=== PATIENT | male | born 1985 | race Two or more races ===

== ENCOUNTER 2024-02-07 06:35 | Outpatient (OUT) | payer MEDICARE, MEDICAID, SELFPAY ==
[2024-02-07 07:11] LABS: Basophils Percent Auto 0.7 % (0.2-2.0); Eosinophils Absolute Auto 0.2 10^3/uL (0.0-0.7); Eosinophils Percent Auto 3.1 % (0.9-7.0); Hematocrit 46.8 % (42.0-54.0); Hemoglobin 15.5 g/dL (14.0-18.0); Immature Granulocytes Abs Auto 0.02 10^3/uL (0.00-0.03); Immature Granulocytes Pct Auto 0.3 % (0.0-0.5); Mean Corpuscular HGB Conc 33.1 g/dL (29.9-35.2); Mean Corpuscular Hemoglobin 33.1 pg (25.9-34.0); Mean Platelet Volume 11.5 fL (9.5-13.5); Monocytes Absolute Auto 0.7 10^3/uL (0.3-0.8); Monocytes Percent Auto 11.4 % (1.7-12.0); Neutrophils Absolute Auto 3.2 10^3/uL (1.4-6.5); Neutrophils Percent Auto 51.5 % (43.0-75.0); Platelet Count 157 10^3/uL (150-450); Red Blood Count 4.68 10^6/uL (4.70-6.10); Red Cell Distribution Width 13.1 % (11.0-15.0); White Blood Count 6.1 10^3/uL (4.0-11.0)
[2024-02-07 07:45] LABS: Alanine Aminotransferase 18 U/L (16-63); Albumin Globulin Ratio 1.1; Alkaline Phosphatase 85 U/L (46-116); Anion Gap 16.9; Aspartate Amino Transferase 18 U/L (15-37); Bilirubin Total 0.3 mg/dL (0.2-1.0); Calcium 8.6 mg/dL (8.5-10.1); Carbon Dioxide 16.8 mmol/L (21.0-32.0); Chloride 107 mmol/L (98-107); Estimated GFR (African America >60 (>=60); Estimated GFR (Non-African Ame >60 (>=60); Globulin 3.5 g/dL; Glucose 107 mg/dL (74-106); Potassium 4.7 mmol/L (3.5-5.1); Sodium 136 mmol/L (136-145); Total Protein 7.5 g/dL (6.4-8.2)
== END 2024-02-07 06:36 | disposition home or self-care (01) ==
LOC: LAB 06:35
PROVIDERS: PCP Family Medicine; Visit Provider Family Medicine
DX: Z79.899 Other long term (current) drug therapy (principal); R56.9 Unspecified convulsions
CPT/HCPCS: 36415; 80053; 85025

== ENCOUNTER 2024-10-18 07:03 | Emergency (ER) | payer MEDICARE, MEDICAID, SELFPAY ==
[2024-10-18 07:10] VITALS: BP 129/88; PULSE 56; TEMP 36.7; O2SAT 100; BMI 29.5
--- NOTE | 2024-10-18 07:33 | ED_ITS ---
HPI - Wound/Laceration General Chief Complaint: Wound/Laceration Stated Complaint: LACERATION L EYE Time Seen by Provider: 10/18/24 07:17 Source: caregiver Source comment: Patient from [facility]. 2 staff members here for assistance Mode of arrival: walk-in Limitations: language barrier and altered mental status History of Present Illness HPI narrative: 39-year-old male who is coming from a residential, he is nonverbal and apparently had a angry affect which she usually have during which she hit his head with the closet corner, the patient did not pass out and this is apparently at his usual behavior There is no other complaint and the patient did not show any distress, the patient is up-to-date with his tetanus booster Related Data Allergies Allergy/AdvReac Type Severity Reaction Status Date / Time No Known Drug Allergies Allergy Verified 10/18/24 07:10 Review of Systems ROS Status of ROS 10 or more systems reviewed and unremark able except as noted in history and below Exam Narrative Exam Narrative: Nurses notes and vital signs reviewed and patient is not hypoxic. General: Well-appearing and in no apparent distress. Skin: Warm, dry, no pallor noted. No rash. Head: Normocephalic, laceration just at the left eyebrow that is a 1 cm linear covering only the superficial skin with controlled bleeding, it is irregular in shape Neck: Supple, non-tender. Eye: Pupils are equal, round and EOMI. No scleral icterus. Ears, Nose, Mouth, and Throat: TM are clear, no nasal mucosal hypertrophy. Oral mucosa is moist, no posterior oropharynx erythema, uvula is mid-line Neurological: Nonverbal no cranial nerve dysfunction observed. No truncal ataxia. Moves all extremities. Sensation intact. Constitutional Vital Signs, click to edit/add: Last Vital Signs Temp 98.0 F 10/18/24 07:10 Pulse 56 L 10/18/24 07:10 Resp 18 10/18/24 07:10 BP 129/88 10/18/24 07:10 Pulse Ox 100 10/18/24 07:10 O2 Del Method Room Air 10/18/24 07:10 Course Vital Signs Vital signs: Vital Signs Temperature 98.0 F 10/18/24 07:10 Pulse Rate 56 L 10/18/24 07:10 Respiratory Rate 18 10/18/24 07:10 Blood Pressure 129/88 10/18/24 07:10 Pulse Oximetry 100 10/18/24 07:10 Oxygen Delivery Method Room Air 10/18/24 07:10 Temperature 98.0 F 10/18/24 07:10 Pulse Rate 56 L 10/18/24 07:10 Respiratory Rate 18 10/18/24 07:10 Blood Pressure 129/88 10/18/24 07:10 Pulse Oximetry 100 10/18/24 07:10 Oxygen Delivery Method Room Air 10/18/24 07:10 MDM - Wound/Laceration MDM Narrative Medical decision making narrative: The patient is up-to-date with his tetanus I was able to apply Dermabond although the patient was not cooperative with examination as per the staff at the bedside this is his usual behavior To avoid any further harm Dermabond will be the best way of closing the wound especially that it is superficial and it is controlled bleeding, also applied Steri-Strips on top Wound care instruction provided The patient is to follow up with primary care physician in next 2-3 days or to return to the emergency department should any of the signs or symptoms worsen or new symptoms develop. The patient agrees with the following Diagnosis and Treatment plan and the patient will be discharged home. Discharge Plan Discharge Chief Complaint: Wound/Laceration Clinical Impression: Laceration Patient Disposition: Home, Self-Care Time of Disposition Decision: 07:30 Condition: Good Print Language: Barbadian Instructions: Laceration (DC), Facial Laceration (ED) Referrals: MEL BURTON DO [Primary Care Provider] - 1 week
== END 2024-10-18 07:38 | disposition home or self-care (01) ==
PROVIDERS: Emergency Provider Emergency Medicine; PCP Family Medicine
DX: S01.112A Laceration without foreign body of left eyelid and periocular area, initial encounter (principal); W22.03XA Walked into furniture, initial encounter
CPT/HCPCS: 99282

== ENCOUNTER 2024-11-29 06:33 | Outpatient (OUT) | payer MEDICARE, MEDICAID, SELFPAY ==
--- OUTSIDE RECORDS SUMMARY | 2024-11-29 06:34 | XMS_ITS | CCD ---
Author Organization [facility] Care Team Providers Care [employer] Name Role Phone MICHEAL, DR MEL Aguilar Primary Care Unavailable PAY, DR ROBERTS Attending Unavailable PAY, DR ROBERTS Admitting Unavailable WEST, DR KATHYA Gross Consulting Unavailable PAY, DR ROBERTS Consulting Unavailable GRECHNY, KYLAH MACHADO Consulting Unavailable BURTON, DR MEL Aguilar Consulting Unavailable BURTON, DR MEL Aguilar Primary Care Unavailable BURTON, DR MEL Aguilar Admitting Unavailable BURTON, DR MEL Aguilar Attending Unavailable Unavailable Primary Care Provider Unavailabl e Unavailable Primary Care Provider Unavailabl e MEL BURTON Primary Care Physician [phone] MEL BURTON Admitting Unavailable BURTON, MEL Attending Unavailable BURTON, MEL Attending Unavailable BURTON, MEL Admitting Unavailable BURTON, MEL Attending Unavailable BURTON, MEL Admitting Unavailable BURTON, MEL Attending Unavailable BURTON, MEL Admitting Unavailable Medications Current Medications Medication Drug Class(es) Dates Sig (Normalized) Sig (Original) acetaZOLAMIDE 250 mg oral tablet (3 sources) Carbonic Anhydrase Inhibitor Start: 09-16-2020 take 1 tablet by mouth three times daily acetaZOLAMIDE (DIAMOX) 250 MG tablet TAKE ONE TABLET BY MOUTH 3 TIMES DAILY DIAMOX 09/16/2020 Active Amphetamine / Dextroamphetamine (3 sources) Central Nervous System Stimulant take 30 mg by mouth once daily Amphetamine-Dextro amphetamine (AMPHETAMINE SALT COMBO ORAL) Take 30 mg by mouth daily. Active take 30 mg by mouth once daily A mphetamine-Dextroamphetamine (AMPHETAMINE SALT COMBO ORAL) Take 30 mg by mouth daily. 0 Active ARIPiprazole 30 mg oral tablet (3 sources) Atypical Antipsychotic take 1 tablet by mouth once daily aripiprazole (ABILIFY) 30 MG tablet Take 30 mg by mouth daily. Active bacitracin 0.5 unt/mg topical ointment (3 sources) bacitracin 500 U NIT/GM ointment Apply topically 2 times daily. Apply {RX TOP AMOUNT:249490} to affected area. Active bacitracin 500 U NIT/GM ointment Apply topically 2 times daily. Apply {RX TOP AMOUNT:165521} to affected area. 0 Active benztropine mesylate 1 mg oral tablet (3 sources) Anticholinergic, Antihistamine take 1 tablet by mouth twice daily benztropine (COGENTIN) 1 MG tablet Take 1 mg by mouth 2 times daily. Active busPIRone hydrochloride 15 mg oral tablet (6 sources) Start: 09-17-19 take 2 tablets by mouth three times daily busPIRone (BUSPAR) 15 MG tablet TAKE TWO TABLETS BY MOUTH 3 TIMES DAILY BUSPAR 09/16/2020 Active take 1 tablet by mouth three elis es daily busPIRone (BUSPAR) 10 MG tablet Take 10 mg by mouth 3 times daily. Active 12 hr carBAMazepine 400 mg extended release oral tablet (6 sources) Mood Stabilizer Start: 09-16-2020 take 1 tablet by mouth twice daily carbamazepine (TEGRETOL XR) 400 MG XR tablet TAKE ONE TABLET BY MOUTH TWICE A DAY TEGRETOL XR 09/16/2020 Active take 2 tablets by mouth twice da guillermo carbamazepine (TEGRETOL) 200 MG tablet Take 400 mg by mouth 2 times daily. Active cloNIDine hydrochloride 0.2 mg oral tablet (3 sources) Central alpha-2 Adrenergic Agonist take 1 tablet by mouth three times daily clonidine (CATAPRES) 0.2 MG tablet Take 0.2 mg by mouth 3 times daily. Active docusate sodium 100 mg oral capsule (3 sources) take 1 capsule by mouth twice daily docusate sodium (COLACE) 100 MG capsule Take 100 mg by mouth 2 times daily. Active fluticasone (6 sources) Corticosteroid fluticasone (FLONASE) 50 mcg/act nasal inhaler fluticasone propionate 50 mcg/actuation nasal spray,suspension Active FLUTICASONE PROP IONATE HFA INHALATION Sutton 50 mcg into the nose. Active FLUTICASONE PROP IONATE HFA INHALATION Sutton 50 mcg into the nose. 0 Active guanFACINE 1 mg oral tablet (6 sources) Central alpha-2 Adrenergic Agonist Start: 09-16-2020 take 2 tablets by mouth once daily guanfacine (TENEX) 1 MG tablet TAKE TWO TABLETS BY MOUTH ONCE DAILY TENEX 09/16/2020 Active Start: 09-16-2020 take 1 tablet by ramírez th twice daily guanFACINE HCl 2 MG TABS TAKE ONE TABLET BY MOUTH TWICE A DAY TENEX 09/16/2020 Active haloperidol 5 mg oral tablet (3 sources) Typical Antipsychotic take 1 tablet by mouth three times daily haloperidol (HALDOL) 5 MG tablet Take 5 mg by mouth 3 times daily. Active ketoconazole 20 mg/ml medicated shampoo (3 sources) Azole Antifungal ketoconazole (NIZORAL) 2 % shampoo ketoconazole 2 % shampoo Active ammonium lactate 120 mg/ml topical cream (3 sources) ammonium lactate (AMLACTIN, LAC-HYDRIN) 12 % cream Apply topically 2 times daily. Apply {RX TOP AMOUNT:250414} to affected area. Active linaclotide 0.145 mg oral capsule (3 sources) Guanylate Cyclase-C Agonist Start: 09-10-19 21 take 1 capsule by mouth once daily Linzess 145 MCG CAPS capsule Take 145 mcg by mouth daily. 09/10/2020 Active lurasidone hydrochloride 40 mg oral tablet (6 sources) Atypical Antipsychotic Start: 09-17-19 21 take 1 tablet by mouth at bedtime Latuda 40 MG tablet TAKE ONE TABLET BY MOUTH AT BEDTIME ALONG WITH 80MG 09/16/2020 Active Start: 09-16-2020 take 1 tablet by ramírez th twice daily Latuda 80 MG tablet Take 80 mg by mouth 2 times daily. 09/16/2020 Active metoprolol tartrate 100 mg oral tablet (3 sources) beta-Adrenergic Zo Start: 09-16-2020 take 1 tablet by mouth three times daily metoprolol (LOPRESSOR) 100 MG tablet TAKE ONE TABLET BY MOUTH 3 TIMES DAILY LOPRESSOR 09/16/2020 Active naltrexone hydrochloride 50 mg oral tablet (3 sources) Opioid Antagonist Start: 09-16-2020 take 1 tablet by mouth three times daily naltrexone 50 MG tablet TAKE ONE TABLET BY MOUTH 3 TIMES DAILY 09/16/2020 Active omeprazole 20 mg delayed release oral capsule (3 sources) Proton Pump Inhibitor Start: 09-16-2020 take 1 capsule by mouth once daily omeprazole (PRILOSEC) 20 MG capsule Take 20 mg by mouth daily. 09/16/2020 Active QUEtiapine 400 mg oral tablet (6 sources) Atypical Antipsychotic Start: 09-16-2020 take 1 tablet by mouth twice daily QUEtiapine (SEROQUEL) 400 MG tablet TAKE ONE TABLET BY MOUTH TWICE A DAY SEROQUEL 09/16/2020 Active take 1 tablet by mouth at bedtim e quetiapine (SEROQUEL) 300 MG tablet Take 300 mg by mouth at bedtime. Active raNITIdine 150 mg oral tablet (3 sources) Histamine-2 Receptor Antagonist take 1 tablet by mouth twice daily ranitidine (ZANTAC) 150 MG tablet Take 150 mg by mouth 2 times daily. Active sertraline 100 mg oral tablet (6 sources) Serotonin Reuptake Inhibitor sertraline (ZOLOFT) 100 MG tablet sertraline 100 mg tablet Active sertraline (ZOLO FT) 50 MG tablet sertraline 50 mg tablet Active topiramate 100 mg oral tablet (3 sources) take 1 tablet by mouth twice daily topiramate (TOPAMAX) 100 MG tablet Take 100 mg by mouth 2 times daily. Active triamcinolone acetonide 1 mg/ml topical cream (3 sources) Corticosteroid triamcinolone 0. 1 % cream triamcinolone acetonide 0.1 % topical cream Active Problems Active Problems Problem Classification Problem Date Documented Date Episodic/Chronic Allergic reactions (3 sources) Eczema 09-29-2013 Episodic Anxiety disorders (1 source) Obsessive-compulsive disorder, unspecified; Translations: [OBSESSIVE-COMPULSIV E D/O UNSPEC] Onset: 03-04-2021 Chronic Asthma (4 sources) Unspecified asthma, uncomplicated; Translations: [Asthma] Onset: 03-04-2021 09-29-2013 Chronic Attention-deficit, conduct, and disruptive behavior disorders (3 sources) Attention deficit hyperactivity disorder; Translations: [Attention-deficit hyperactivity disorder, unspecified type] Onset: 12-18-2013 09-20-2020 Chronic Attention-deficit, conduct, and disruptive behavior disorders (3 sources) Hyperactive behavior 09-29-2013 Episodic Developmental disorders (4 sources) Unspecified intellectual disabilities; Translations: [Mental retardation] Onset: 03-04-2021 09-29-2013 Chronic Disorders usually diagnosed in infancy, childhood, or adolescence (10 sources) Autistic disorder; Translations: [Autistic disorder] Onset: 12-18-2013 09-20-2020 Chronic Epilepsy; convulsions (1 source) Epilepsy, unspecified, not intractable, without status epilepticus; Translations: [EPILEPSY UNS NOT INTRACT W/O SE] Onset: 03-04-2021 Chronic Genitourinary symptoms and ill-defined conditions (5 sources) Hematuria, unspecified; Translations: [Unspecified abnormal findings in urine] Onset: 02-04-2021 Episodic Malaise and fatigue (1 source) Other fatigue; Translations: [OTHER FATIGUE] Onset: 02-12-2021 Episodic Mood disorders (6 sources) Depressive disorder; Translations: [Depression] Onset: 12-18-2013 09-29-2013 Chronic Other aftercare (1 source) Other terminal superintendent (current) drug therapy; Translations: [OTH SKILLED NURSING CURRENT DRUG THERAPY] Onset: 03-04-2021 Episodic Other inflammatory condition of skin (3 sources) Seborrhea 09-29-2013 Episodic Other lower respiratory disease (3 sources) Cough; Translations: [COUGH] Onset: 02-28-2021 Episodic Other upper respiratory infections (1 source) Acute upper respiratory infection, unspecified; Translations: [ACUTE UP RESPIRATORY INFECTION UNS] Onset: 03-04-2021 Episodic Unclassified (3 sources) Finding relating to non-verbal communication 08-15-2010 Viral infection (1 source) COVID-19; Translations: [COVID-19] Onset: 03-04-2021 Past or Other Problems Problem Classification Problem Date Documented Da te Episodic/Chronic Disorders of teeth and jaw (12 sources) Dental caries; Translations: [Dental caries, unspecified] Onset: 12-18-2013 05-03-2019 Episodic Epilepsy; convulsions (6 sources) Seizure; Translations: [Unspecified convulsions] Onset: 12-18-2013 09-29-2013 Episodic Other gastrointestinal disorders (3 sources) Chronic constipation; Translations: [Other constipation] Onset: 07-05-2019 09-20-2020 Episodic Other nutritional; endocrine; and metabolic disorders (3 sources) Developmental delay; Translations: [Unspecified lack of expected normal physiological development in childhood] Onset: 12-18-2013 Episodic Results Test Name Value Interpretation Reference Range Facility Telephone Encounteron 2024 [employer] Authentication Interface Message Text Debora aceves calling to get update on email sent to [place] on 09/11/24. Email states: Iris with [facility] is calling [phone] Iris also indicates she has approx. 8 more patients to check on. Please give a call back. Thanks.] Iris states she needs a return call at earliest convenience. Iris states they are required by the state to get an update on waitlist for this Pt and 8 others. Iris can be reached at Phone numbers Email sent 09/15/24 Normal [facility] CBC w/Indiceson 12-08-2023 Erythrocyte distribution width (RBC) [Ratio] 13.9 % Normal 10.9-14.2 [facility] Comment on above: Performed By: #### 2 [id number] #### [facility] [address] [place] [address] Hematocrit (Bld) [Volume fraction] 42.3 % Low 44.0-70.0 [facility] Comment on above: Performed By: #### 2 [id number] #### [facility] [address] [place] [address] Hemoglobin (Bld) [Mass/Vol] 14.0 g/dL Invalid Interpretation Code [facility] Comment on above: Performed By: #### 2 [id number] #### [facility] [address] [place] [address] MCH (RBC) [Entitic mass] 33.4 pg Invalid Interpretation Code [facility] Comment on above: Performed By: #### 2 [id number] #### [facility] [address] [place] [address] MCHC (RBC) [Mass/Vol] 33.2 g/dL Normal 31.4-36.0 [facility] Comment on above: Performed By: #### 2 [id number] #### [facility] [address] [place] [address] MCV (RBC) [Entitic vol] 100.6 fL High 80.0-100.0 [facility] Comment on above: Performed By: #### 2 [id number] #### [facility] [address] [place] [address] Platelet mean volume (Bld) [Entitic vol] 9.6 fL Normal 6.4-10.8 [facility] Comment on above: Performed By: #### 2 [id number] #### [facility] [address] [place] [address] Platelets (Bld) [#/Vol] 184.0 E9/L Normal 150.0-500.0 [facility] Comment on above: Performed By: #### 2 [id number] #### [facility] [address] [place] [address] RBC (Bld) [#/Vol] 4.2 E12/L Normal 3.8-6.7 [facility] Comment on above: Performed By: #### 2 [id number] #### [facility] [address] [place] [address] RBC size Nom (Bld) NORMAL Invalid Interpretation Code [facility] Comment on above: Performed By: #### 2 [id number] #### [facility] [address] [place] [address] WBC corrected for nucl RBC Auto (Bld) [#/Vol] 5.8 E9/L Normal 4.0-11.0 [facility] Comment on above: Performed By: #### 2 [id number] #### [facility] [address] [place] [address] CHEMISTRYOrdered By: SYSTEM SYSTEM on 12-08-2023 Albumin [Mass/Vol] 4.4 g/dL Normal 3.3 - 5.0 gm/dL [facility] Albumin/Globulin [Mass ratio] 1.7 {ratio} Normal 1.1 - 2.2 [facility] ALP [Catalytic activity/Vol] 58 [iU]/d Normal 21 - 98 Int._Unit/L [facility] ALT No additional P-5'-P [Catalytic activity/Vol] 10 [iU]/d Normal 6 - 46 Int._Unit/L [facility] Anion gap [Moles/Vol] 12 mmol/L Normal 6 - 16 mEq/L R emisol Chem AST [Catalytic activity/Vol] 17 [iU]/d Normal 5 - 43 Int._Unit/L [facility] Bilirubin [Mass/Vol] 0.4 mg/dL Normal 0.0 - 1 .1 mg/dL [facility] Calcium [Mass/Vol] 8.6 mg/dL Low 8.9 - 11. 1 mg/dL [facility] Chloride [Moles/Vol] 107 mmol/L Normal 101 - 1 11 mmol/L [facility] CO2 [Moles/Vol] 16 mmol/L Low 21 - 31 mmol/L [facility] Creatinine [Mass/Vol] 0.9 mg/dL Normal 0.5 - 1.3 mg/dL [facility] Globulin (S) [Mass/Vol] 2.6 g/dL Normal 1.4 - 4.0 gm/dL [facility] Glucose [Mass/Vol] 98 mg/dL Normal 55 - 199 mg/dL [facility] Potassium [Moles/Vol] 3.9 mmol/L Normal 3.5 - 5.3 mmol/L [facility] Protein [Mass/Vol] 7.0 g/dL Normal 6.0 - 7.8 gm/dL [facility] Sodium [Moles/Vol] 131 mmol/L Low 135 - 145 mmol/L [facility] Urea nitrogen [Mass/Vol] 10 mg/dL Normal 5 - 21 mg/dL [facility] Urea nitrogen/Creatinine [Mass ratio] 11 mg/mg Normal 10 - 20 [facility] CHEMISTRYOrdered By: Day vázquez on 12-08-2023 eGFR NOT CALCULATED Invalid Interpretation Code >=59 [facility] CMPon 12-08-2023 Albumin [Mass/Vol] 4.4 g/dL Normal 3.3-5.0 [facility] Comment on above: Performed By: #### 2 [id number] #### [facility] [address] [place] [address] Albumin/Globulin (S) [Mass conc ratio] 1.7 Normal 1.1-2.2 [facility] Comment on above: Performed By: #### 2 [id number] #### [facility] [address] [place] [address] ALP [Catalytic activity/Vol] 58 Int._Unit/L Normal 21-98 [facility] Comment on above: Performed By: #### 2 [id number] #### [facility] [address] [place] [address] ALT No additional P-5'-P [Catalytic activity/Vol] 10 Int._Unit/L Normal 6-46 [facility] Comment on above: Performed By: #### 2 [id number] #### [facility] [address] [place] [address] Anion gap [Moles/Vol] 12 mmol/L Normal 6-16 [facility] Comment on above: Performed By: #### 2 [id number] #### [facility] [address] [place] [address] AST [Catalytic activity/Vol] 17 Int._Unit/L Normal 5-43 [facility] Comment on above: Performed By: #### 2 [id number] #### [facility] [address] [place] [address] Bilirubin [Mass/Vol] 0.4 mg/dL Normal 0.0-1.1 [facility] Comment on above: Performed By: #### 2 [id number] #### [facility] [address] [place] [address] Calcium [Mass/Vol] 8.6 mg/dL Low 8.9-11.1 [facility] Comment on above: Performed By: #### 2 754595 #### [facility] [address] [place] [address] Chloride [Moles/Vol] 107 mmol/L Normal 101-111 [facility] Comment on above: Performed By: #### 2 759283 #### [facility] [address] [place] [address] CO2 [Moles/Vol] 16 mmol/L Low 21-31 [facility] Comment on above: Performed By: #### 2 766718 #### [facility] [address] [place] [address] Creatinine [Mass/Vol] 0.9 mg/dL Normal 0.5-1.3 [facility] Comment on above: Performed By: #### 2 [id number] #### [facility] [address] [place] [address] Globulin (S) [Mass/Vol] 2.6 g/dL Normal 1.4-4.0 [facility] Comment on above: Performed By: #### 2 038303 #### [facility] [address] [place] [address] Glucose [Mass/Vol] 98 mg/dL Normal 55-199 [facility] Comment on above: Performed By: #### 2 982337 #### [facility] [address] [place] [address] Potassium [Moles/Vol] 3.9 mmol/L Normal 3.5-5.3 [facility] Comment on above: Performed By: #### 2 014289 #### [facility] [address] [place] [address] Protein [Mass/Vol] 7.0 g/dL Normal 6.0-7.8 [facility] Comment on above: Performed By: #### 2 388310 #### [facility] [address] [place] [address] Sodium [Moles/Vol] 131 mmol/L Low 135-145 [facility] Comment on above: Performed By: #### 2 393672 #### [facility] [address] [place] [address] Urea nitrogen [Mass/Vol] 10 mg/dL Normal 5-21 [facility] Comment on above: Performed By: #### 2 036171 #### [facility] [address] [place] [address] Urea nitrogen/Creatinine [Mass ratio] 11 No Units Normal 10-20 [facility] Comment on above: Performed By: #### 2 [id number] #### [facility] [address] [place] [address] HEMATOLOGYOrdered By: SYSTEM SYSTEM on 12-08-2023 Erythrocyte distribution width (RBC) [Ratio] 13.9 % Normal 10.9 - 14.2 % [facility] Hematocrit (Bld) [Volume fraction] 42.3 % Low 44.0 - 70.0 % [facility] Hemoglobin (Bld) [Mass/Vol] 14.0 g/dL Invalid Interpretation Code [facility] MCH (RBC) [Entitic mass] 33.4 pg Invalid Interpretation Code [facility] MCHC (RBC) [Mass/Vol] 33.2 g/dL Normal 31.4 - 36.0 gm/dL [facility] MCV (RBC) [Entitic vol] 100.6 fL High 80.0 - 100.0 fL [facility] Platelet mean volume (Bld) [Entitic vol] 9.6 fL Normal 6.4 - 10.8 fL [facility] Platelets (Bld) [#/Vol] 184.0 E9/L Normal 150.0 - 500.0 E9/L [facility] RBC (Bld) [#/Vol] 4.2 E12/L Normal 3.8 - 6.7 E12/L [facility] RBC size Nom (Bld) NORMAL *NA* (12/08/23 6:47 AM) Invalid Interpretation Code [facility] WBC corrected for nucl RBC Auto (Bld) [#/Vol] 5.8 E9/L Normal 4.0 - 11.0 E9/L [facility] Physician Orderon 12-08-2023 Physician Order [id number] Normal [facility] eGFRon 12-08-2023 eGFR NOT CALCULATED Invalid Interpretation Code >=59 [facility] Comment on above: Order Comment: Order added by Discern Expert. Performed By: #### 1 [id number] #### [facility] [address] [place] [address] CHEMISTRYOrdered By: SYSTEM SYSTEM on 11-10-2023 Carbamaz Lvl 9.6 microgram/mL Normal 4.0 - 12.0 mcg/mL [facility] Carbamazepineon 11-10-2023 Carbamaz Lvl 9.6 microgram/mL Normal 4.0-12.0 [facility] Comment on above: Performed By: #### 2 [id number] #### [facility] [address] [place] [address] Physician Orderon 11-10-2023 Physician Order [id number] Normal [facility] Auto Diffon 03-17-2023 Basophils/100 WBC (Bld) 0.3 % Normal 0.0-2.0 [facility] Comment on above: Order Comment: Order Added by Discern Expert. Performed By: #### 1 [id number], [id number], 7107263, 1179388, 5850545 #### [facility] [address] [place] [address] Basophils/Leukocytes Auto (Bld) [Pure # fraction] 0.0 E9/L Normal 0.0-0.2 [facility] Comment on above: Order Comment: Order Added by Discern Expert. Performed By: #### 1 [id number], 0783057, 2490154, 7586363, [id number] #### [facility] [address] [place] [address] Eosinophils/100 WBC (Bld) 1.6 % Normal 0.0-8.0 [facility] Comment on above: Order Comment: Order Added by Discern Expert. Performed By: #### 1 1479359, 1281132, 0718648, 1596925, 9441018 #### [facility] [address] [place] [address] Eosinophils/Leukocyte s Auto (Bld) [Pure # fraction] 0.2 E9/L Normal 0.0-0.5 [facility] Comment on above: Order Comment: Order Added by Discern Expert. Performed By: #### 1 [id number], 7525462, 5296191, 2149654, 3407931 #### [facility] [address] [place] [address] Lymphocytes/100 WBC (Bld) 17.1 % Normal 14.0-50.0 [facility] Comment on above: Order Comment: Order Added by Discern Expert. Performed By: #### 1 1935296, 9149778, 6607042, 0104015, 9621619 #### [facility] [address] [place] [address] Lymphocytes/Leukocyte s Auto (Bld) [Pure # fraction] 1.7 E9/L Normal 1.0-4.0 [facility] Comment on above: Order Comment: Order Added by Discern Expert. Performed By: #### 1 [id number], 8947394, 9422828, 4920873, 8759859 #### [facility] [address] [place] [address] Monocytes/100 WBC (Bld) 8.6 % Normal 4.0-14.0 [facility] Comment on above: Order Comment: Order Added by Discern Expert. Performed By: #### 1 [id number], 1028000, 8617883, 6292088, 8700421 #### [facility] [address] [place] [address] Monocytes/Leukocytes Auto (Bld) [Pure # fraction] 0.9 E9/L Normal 0.2-1.0 [facility] Comment on above: Order Comment: Order Added by Ebony Expert. Performed By: #### 1 0862315, 6530821, 7477323, 5982548, 5979938 #### [facility] [address] [place] [address] Neutrophils/100 WBC (Bld) 72.4 % Normal 36.0-75.0 [facility] Comment on above: Order Comment: Order Added by Ebony Expert. Performed By: #### 1 1571230, 6378624, 0172835, 7675294, 9017066 #### [facility] [address] [place] [address] Neutrophils/Leukocyte s Auto (Bld) [Pure # fraction] 7.3 E9/L Normal 2.0-7.5 [facility] Comment on above: Order Comment: Order Added by Ebony Expert. Performed By: #### 1 [id number], 6515581, 2768731, 9393970, 4788996 #### [facility] [address] [place] [address] CBC w/ Auto Diffon 3 Erythrocyte distribution width (RBC) [Ratio] 14.2 % Normal 10.9-14.2 [facility] Comment on above: Performed By: #### 1 [id number], 7068966, 6990273, 5615059, 9002977 #### [facility] [address] [place] [address] Hematocrit (Bld) [Volume fraction] 42.2 % Low 44.0-70.0 [facility] Comment on above: Performed By: #### 1 1968378, 1380241, 9248917, 9398143, 8547150 #### [facility] [address] [place] [address] Hemoglobin (Bld) [Mass/Vol] 14.3 g/dL Invalid Interpretation Code [facility] Comment on above: Performed By: #### 1 6361335, 8274666, 8946381, 0903148, 0406268 #### [facility] [address] [place] [address] MCH (RBC) [Entitic mass] 33.6 pg Invalid Interpretation Code [facility] Comment on above: Performed By: #### 1 1877276, 6305385, 2491884, 2523450, 3960818 #### [facility] [address] [place] [address] MCHC (RBC) [Mass/Vol] 33.9 g/dL Normal 31.4-36.0 [facility] Comment on above: Performed By: #### 1 0609276, 9768308, 6525893, 2180381, 4904452 #### [facility] [address] [place] [address] MCV (RBC) [Entitic vol] 99.2 fL Normal 80.0-100.0 [facility] Comment on above: Performed By: #### 1 [id number], 9580168, 4043232, 4504129, [id number] #### [facility] [address] [place] [address] Platelet mean volume (Bld) [Entitic vol] 10.1 fL Normal 6.4-10.8 [facility] Comment on above: Performed By: #### 1 [id number], 3931201, 7354717, 8323415, 2893313 #### [facility] [address] [place] [address] Platelets (Bld) [#/Vol] 152.0 E9/L Normal 150.0-500.0 [facility] Comment on above: Performed By: #### 1 [id number], 5981969, 3642675, 2877665, 2460174 #### [facility] [address] [place] [address] RBC (Bld) [#/Vol] 4.3 E12/L Normal 3.8-6.7 [facility] Comment on above: Performed By: #### 1 9462075, 4721963, 2060449, 1139783, 3868671 #### [facility] [address] [place] [address] WBC corrected for nucl RBC Auto (Bld) [#/Vol] 10.1 E9/L Normal 4.0-11.0 [facility] Comment on above: Performed By: #### 1 [id number], 8802850, 6540249, 4874332, 3931957 #### [facility] [address] [place] [address] CHEMISTRYOrdered By: SYSTEM SYSTEM on 03-17-2023 Albumin [Mass/Vol] 4.0 g/dL Normal 3.3 - 5.0 gm/dL [facility] Albumin/Globulin [Mass ratio] 1.4 {ratio} Normal 1.1 - 2.2 [facility] ALP [Catalytic activity/Vol] 53 [iU]/d Normal 21 - 98 Int._Unit/L [facility] ALT No additional P-5'-P [Catalytic activity/Vol] 11 [iU]/d Normal 6 - 46 Int._Unit/L [facility] Anion gap [Moles/Vol] 11 mmol/L Normal 6 - 16 mEq/L [facility] AST [Catalytic activity/Vol] 16 [iU]/d Normal 5 - 43 Int._Unit/L [facility] Bilirubin [Mass/Vol] 0.2 mg/dL Normal 0.0 - 1 .1 mg/dL [facility] Calcium [Mass/Vol] 8.6 mg/dL Low 8.9 - 11. 1 mg/dL [facility] carBAMazepine [Mass/Vol] 7.6 microgram/mL Normal 4.0 - 12.0 mcg/mL [facility] Chloride [Moles/Vol] 114 mmol/L High 101 - 1 11 mmol/L [facility] CO2 [Moles/Vol] 15 mmol/L Low 21 - 31 mmol/L [facility] Creatinine [Mass/Vol] 1.0 mg/dL Normal 0.5 - 1.3 mg/dL [facility] GFR/1.73 sq M.predicted among non-blacks MDRD (S/P/Bld) [Vol rate/Area] 100 mL/min/1.73 m2 Normal >=59mL/min/1. 73 m2 [facility] Globulin (S) [Mass/Vol] 2.8 g/dL Normal 1.4 - 4.0 gm/dL [facility] Glucose [Mass/Vol] 90 mg/dL Normal 55 - 199 mg/dL [facility] Potassium [Moles/Vol] 3.9 mmol/L Normal 3.5 - 5.3 mmol/L [facility] Protein [Mass/Vol] 6.8 g/dL Normal 6.0 - 7.8 gm/dL [facility] Sodium [Moles/Vol] 136 mmol/L Normal 135 - 145 mmol/L [facility] Urea nitrogen [Mass/Vol] 16 mg/dL Normal 5 - 21 mg/dL [facility] Urea nitrogen/Creatinine [Mass ratio] 16 mg/mg Normal 10 - 20 [facility] CMPon 03-17-2023 Albumin [Mass/Vol] 4.0 g/dL Normal 3.3-5.0 [facility] Comment on above: Performed By: #### 1 [id number], 2869668, 5221685, 0170945, 9641445 #### [facility] [address] [place] [address] Albumin/Globulin (S) [Mass conc ratio] 1.4 Normal 1.1-2.2 [facility] Comment on above: Performed By: #### 1 [id number], 1276736, 3508634, 0103133, 5554126 #### [facility] [address] [place] [address] ALP [Catalytic activity/Vol] 53 Int._Unit/L Normal 21-98 [facility] Comment on above: Performed By: #### 1 9950051, 4971380, 7293824, 2135328, 4309071 #### [facility] [address] [place] [address] ALT No additional P-5'-P [Catalytic activity/Vol] 11 Int._Unit/L Normal 6-46 [facility] Comment on above: Performed By: #### 1 9159159, 4913908, 2780138, 3176645, 9128751 #### [facility] [address] [place] [address] Anion gap [Moles/Vol] 11 mmol/L Normal 6-16 [facility] Comment on above: Performed By: #### 1 4094249, 2986947, 1341009, 8638049, 5366552 #### [facility] [address] [place] [address] AST [Catalytic activity/Vol] 16 Int._Unit/L Normal 5-43 [facility] Comment on above: Performed By: #### 1 9393571, 2104994, 5028027, 1319720, 8318205 #### [facility] [address] [place] [address] Bilirubin [Mass/Vol] 0.2 mg/dL Normal 0.0-1.1 [facility] Comment on above: Performed By: #### 1 4731963, 4756077, 8259977, 1254607, 9939715 #### [facility] [address] [place] [address] Calcium [Mass/Vol] 8.6 mg/dL Low 8.9-11.1 [facility] Comment on above: Performed By: #### 1 9860230, 1288388, 2342175, 1082979, 5526617 #### [facility] [address] [place] [address] Chloride [Moles/Vol] 114 mmol/L High 101-111 [facility] Comment on above: Performed By: #### 1 8896909, 8555987, 0136465, 0664877, 0017671 #### [facility] [address] [place] [address] CO2 [Moles/Vol] 15 mmol/L Low 21-31 [facility] Comment on above: Performed By: #### 1 2645538, 8851834, 2911299, 6085740, 8191281 #### [facility] [address] [place] [address] Creatinine [Mass/Vol] 1.0 mg/dL Normal 0.5-1.3 [facility] Comment on above: Performed By: #### 1 4746659, 5236681, 9869499, 2735727, 6714091 #### [facility] [address] [place] [address] Globulin (S) [Mass/Vol] 2.8 g/dL Normal 1.4-4.0 [facility] Comment on above: Performed By: #### 1 7110548, 7501604, 6745416, 4910987, 4681038 #### [facility] [address] [place] [address] Glucose [Mass/Vol] 90 mg/dL Normal 55-199 [facility] Comment on above: Result Comment: If t his glucose result represents a fasting glucose, interpretation should refer to the following reference range: 55-99 mg/dL Performed By: #### 1 3250188, 8960204, 1762602, 2794621, 5474421 #### [facility] [address] [place] [address] Potassium [Moles/Vol] 3.9 mmol/L Normal 3.5-5.3 [facility] Comment on above: Performed By: #### 1 2585607, 6122526, 2012723, 8652536, 6518372 #### [facility] [address] [place] [address] Protein [Mass/Vol] 6.8 g/dL Normal 6.0-7.8 [facility] Comment on above: Performed By: #### 1 8387601, 1685479, 5847839, 6672226, 2808600 #### [facility] [address] [place] [address] Sodium [Moles/Vol] 136 mmol/L Normal 135-145 [facility] Comment on above: Performed By: #### 1 4573550, 6395513, 5616817, 9242036, 4583635 #### [facility] [address] [place] [address] Urea nitrogen [Mass/Vol] 16 mg/dL Normal 5-21 [facility] Comment on above: Performed By: #### 1 4820226, 4721711, 4539498, 7258644, 4908313 #### [facility] [address] [place] [address] Urea nitrogen/Creatinine [Mass ratio] 16 No Units Normal 10-20 [facility] Comment on above: Performed By: #### 1 4133588, 4957217, 2937068, 6165640, 7621314 #### [facility] [address] [id number] Carbamazepineon 03-17-2023 carBAMazepine [Mass/Vol] 7.6 microgram/mL Normal 4.0-12.0 [facility] Comment on above: Performed By: #### 1 6535948, 0917717, 8820272, 9411389, 8939478 #### [facility] [address] [place] [address] HEMATOLOGYOrdered By: SYSTEM SYSTEM on 03-17-2023 Basophils/100 WBC (Bld) 0.3 % Normal 0.0 - 2.0 % [facility]Auto[facility] Basophils/Leukocytes Auto (Bld) [Pure # fraction] 0.0 E9/L Normal 0.0 - 0.2 E9/L [facility]Auto[facility] Eosinophils/100 WBC (Bld) 1.6 % Normal 0.0 - 8.0 % [facility]Auto[facility] Eosinophils/Leukocyte s Auto (Bld) [Pure # fraction] 0.2 E9/L Normal 0.0 - 0.5 E9/L [facility]Auto[facility] Lymphocytes/100 WBC (Bld) 17.1 % Normal 14.0 - 50.0 % [facility]eAuto[facility] Lymphocytes/Leukocyte s Auto (Bld) [Pure # fraction] 1.7 E9/L Normal 1.0 - 4.0 E9/L [facility]Auto[facility] Monocytes/100 WBC (Bld) 8.6 % Normal 4.0 - 14.0 % [facility]eAuto[facility] Monocytes/Leukocytes Auto (Bld) [Pure # fraction] 0.9 E9/L Normal 0.2 - 1.0 E9/L [facility] Neutrophils/100 WBC (Bld) 72.4 % Normal 36.0 - 75.0 % [facility]Auto[facility] Neutrophils/Leukocyte s Auto (Bld) [Pure # fraction] 7.3 E9/L Normal 2.0 - 7.5 E9/L [facility] HEMATOLOGYOrdered By: Lawrence Diaz on 03-17-2023 Erythrocyte distribution width (RBC) [Ratio] 14.2 % Normal 10.9 - 14.2 % [facility] Hematocrit (Bld) [Volume fraction] 42.2 % Low 44.0 - 70.0 % [facility] S Hemoglobin (Bld) [Mass/Vol] 14.3 g/dL Invalid Interpretation Code [facility] MCH (RBC) [Entitic mass] 33.6 pg Invalid Interpretation Code [facility] MCHC (RBC) [Mass/Vol] 33.9 g/dL Normal 31.4 - 36.0 gm/dL [facility] MCV (RBC) [Entitic vol] 99.2 fL Normal 80.0 - 100.0 fL [facility]Auto[facility] Platelet mean volume (Bld) [Entitic vol] 10.1 fL Normal 6.4 - 10.8 fL [facility] HemeAut oSS Platelets (Bld) [#/Vol] 152.0 E9/L Normal 150.0 - 500.0 E9/L [facility]eAutoSS RBC (Bld) [#/Vol] 4.3 E12/L Normal 3.8 - 6.7 E12/L [facility]Auto[facility] WBC corrected for nucl RBC Auto (Bld) [#/Vol] 10.1 E9/L Normal 4.0 - 11.0 E9/L [facility]Auto[facility] Physician Orderon 03-17-2023 Physician Order [id number] Normal [facility] eGFRon 03-17-2023 GFR/1.73 sq M.predicted among non-blacks MDRD (S/P/Bld) [Vol rate/Area] 100 mL/min/1.73 m2 Normal >=59 [facility] Comment on above: Order Comment: Order added by Discern Expert. Result Comment: Clinical Reimbursement Specialist shanta kidney disease could be indicated at eGFR's of less than 60 mL/min/1.73m2. Kidney failure is indicated at less than 15 mL/min/1.73m2. Performed By: #### 1 [id number], 1090621, 8205551, 3370009, 1935547 #### [facility] [address] [place] [address] Covid-19 PCR (CVDTB)on 02-16 SARS-CoV-2 (COVID-19) RNA LAMBERT+probe Ql (Unsp spec) Detected Invalid Interpretation Code NOT DETECTED [facility] Comment on above: Result Comment: This test is not yet approved or cleared by the [place] FDA. When there are no FDA-approved or cleared tests available, and other criteria are met, FDA can make tests available under an emergency access mechanism called an Emergency Use Authorization (EUA). The EUA for this test is supported by the [place] of Health and Human Service's (HHS's) declaration that circumstances exist to justify the emergency use of in vitro diagnostics for the detection and/or diagnosis of the virus that causes COVID-19. This EUA will remain in effect (meaning this test can be used) for the duration of the COVID-19 declaration justifying emergency of IVDs, unless it is terminated or revoked by FDA (after which the test may no longer be used). Performed By: #### C VDAGS, CVDTB #### [facility] [address], [place] [address] [place] Veronica SYMPTOMATIC COVID-19 ANTIGEN on 02-28-2021 EUA Statement SEE BELOW Normal [facility] Comment on above: Result Comment: This test has not been FDA cleared or approved, but has been authorized by the FDA under an Emergency Use Authorization (EUA) for use by authorized laboratories certified under CLIA that meet the requirements to perform moderate or high complexity testing. This test has been authorized only for the detection of proteins from SARS-CoV-2, not for any other viruses or pathogens. The emergency use of this test is authorized for the duration of the declaration that circumstances exist justifying the authorization of emergency use of in vitro diagnostic tests for detection and/or diagnosis of Covid-19 under section 564(b)(1) of the Act, 21 U.S.C. 360bbb-3(b)(1), unless the declaration is terminated or authorization is revoked sooner. Performed By: #### C ILIA, AVTB #### [facility] [address] [place] [address] [place] Veronica SARS-CoV-2 (COVID-19) RNA LAMBERT+probe Ql (Unsp spec) Negative Normal NEGATIVE [facility] Comment on above: Result Comment: CONF IRMATION BY PCR PENDING PER CDC GUIDELINES/ SYMPTOMATIC PATIENT. Performed By: #### C VDAGS, CVDTB #### [facility] [address] [place], [place] [id number] [place] Veronica XR CHEST 1 Von 02-28-2021 XR CHEST 1 V EXAMINATION: XR CHEST 1 V HISTORY: SHORTNESS OF BREATH COMPARISON: 11/10/2008 TECHNIQUE: AP portable erect FINDINGS: LUNGS: Moderately low lung volumes. The lungs are clear VASCULATURE: No increased pulmonary vasculature. PLEURA: No pneumothorax, effusion, or pleural thickening. CARDIAC: No cardiomegaly or cardiac silhouette abnormality. MEDIASTINUM: No visible mass or adenopathy. BONES: No fracture or visible bone lesion. OTHER: Gaseous distention of the hepatic flexure beneath the right hemidiaphragm IMPRESSION: Low lung volumes, clear lungs Electronically authenticated by: KATHYA ESPINO Date: 2021-02-28 17:20 Normal [facility] CULTURE URINEon 02-04-2021 CULTURE URINE Culture Observations: NO GROWTH. Normal [facility] Comment on above: Performed By: #### U RCX #### [facility] [address] [place] [address] [place] Glenys UA (CLEAN/CATCH) MICROSCOPIC IF INDICATEon 02-04-2021 Bilirubin Ql (U) Negative Normal NEGATIVE [facility] Comment on above: Performed By: #### U MICRO, UARMICR #### [facility] [address] [place] [address] [place] Glenys Clarity (U) CLEAR Normal CLEAR [facility] Comment on above: Performed By: #### U MICRO, UARMICR #### [facility] [address] [place] [address] [place] Glenys Color (U) YELLOW Normal YELLOW [facility] Comment on above: Performed By: #### U MICRO, UARMICR #### [facility] [address] [place] [address] [place] Glenys Glucose Ql (U) Negative Normal NEGATIVE [facility] Comment on above: Performed By: #### U MICRO, UARMICR #### [facility] [address] [place] [address] [place] Glenys Hemoglobin Ql (U) LARGE Abnormal NEGATIVE [facility] Comment on above: Performed By: #### U MICRO, UARMICR #### [facility] [address] [place] [address] [place] Glenys Ketones Ql (U) Negative Normal NEGATIVE [facility] [place] [facility] Comment on above: Performed By: #### U MICRO, UARMICR #### [facility] [address] [place] [address] [place] Glenys LEUKOCYTES Negative Normal NEGATIVE [facility] Comment on above: Performed By: #### U MICRO, UARMICR #### [facility] [address] [place] [address] [place] Glenys Nitrite Ql (U) Negative Normal NEGATIVE [facility] [place] [facility] Comment on above: Performed By: #### U MICRO, UARMICR #### [facility] [address] [place] [address] [place] Glenys pH (U) 6.5 [pH] Normal 5-9 [facility] Comment on above: Performed By: #### U MICRO, UARMICR #### [facility] [address] [place] [address] [place] Veronica SPEC GRAVITY 1.025 Normal 1.005-<=1.025 [facility] Comment on above: Performed By: #### U MICRO, UARMICR #### [facility] [address] [place] [address] [place] Veronica UA PROTEIN Negative Normal NEGATIVE/ TRACE [facility] Comment on above: Performed By: #### U MICRO, UARMICR #### [facility] [address] [place] [address] [place] Glenys UR MICRO IND INDICATED Normal [facility] Comment on above: Performed By: #### U MICRO, UARMICR #### [facility] [address] [place] [address] [place]abo[place] Veronica Urobilinogen Qn (U) 0.2 {Hilary'U}/dL Normal 0.2 - 1. 0 [facility] Comment on above: Performed By: #### U MICRO, UARMICR #### [facility] [address] [place] [address] [place] Glenys URINE MICROSCOPIC ONLYon BACTERIA TRACE Abnormal NONE SEEN [facility] Comment on above: Performed By: #### U MICRO, UARMICR #### [facility] [address] [place] [address] [place] Veronica Bacteria identified Cx Nom (U) NOT INDICATED Normal [facility] Comment on above: Performed By: #### U MICRO, UARMICR #### [facility] [address] [place] [address] [place] Glenys CAST NONE SEEN Normal NONE SEEN [facility] Comment on above: Performed By: #### U MICRO, UARMICR #### [facility] [address] [place] [address] [place] Glenys Crystals LM Nom (Urine sed) NONE SEEN Normal NONE SEEN [facility] Comment on above: Performed By: #### U MICRO, UARMICR #### [facility] [address] [place] [address] [place] Glenys Epithelial cells LM Ql (Urine sed) RARE Normal NONE SEEN /RARE [facility] Comment on above: Performed By: #### U MICRO, UARMICR #### [facility] [address], [place] [address] [place] Glenys MUCOUS NONE SEEN Normal NONE SEEN [facility] Comment on above: Performed By: #### U MICRO, UARMICR #### [facility] [address], [place] [address] [place] Glenys RBC 10-20 Abnormal 0-2 [facility] Comment on above: Performed By: #### U MICRO, UARMICR #### [facility] [address], [place] [address] [place] Glenys WBC 0-2 Abnormal NONE SEEN [facility] Comment on above: Performed By: #### U MICRO, UARMICR #### [facility] [address], [place] [address] [place] Glenys Encounters Encounter Date Encounter Type Care Provider Facility Start: 10-28-2024 End: 10-28-2024 Letter encounter [facility] Start: 12-08-2023 End: 12-09-2023 ambulatory MEL BURTON Facility:[facility] Start: 12-08-2023 End: 12-08-2023 Lab Drop off MEL BURTON [facility] Start: 11-10-2023 End: 11-11-2023 ambulatory MEL BURTON Facility:[facility] [place] Start: 11-10-2023 End: 11-10-2023 Lab Drop off MEL BURTON [facility] Start: 03-17-2023 End: 03-18-2023 ambulatory MEL BURTON Facility:[facility] Start: 03-17-2023 End: 03-17-2023 Lab Drop off MEL BURTON [facility] Start: 09-17-2022 End: 09-21-2022 Patient encounter procedure aSvanna Lomeli DDS Work Phone: [facility] Start: 07-27-2022 Letter [facility] Start: 02-28-2021 End: 02-28-[address] MEL BURTON Facility:[facility] Start: 02-04-2021 End: 02-04-[address] MEL BURTON Facility:[facility] Plan of Treatment Date Care Activity Detail Author Start: 2036 Shingles (RZV) Vaccine (1 of 2) Shingles (RZV) Vaccine (1 [facility] 2) [facility] Start: 05-08-2030 Tetanus vaccination Tetanus (Td or Tdap) [facility] Start: 03-19-2024 COVID-19 Vaccine ( season) COVID-19 Vaccine ( season) [facility] Start: 09-17-2022 End: 09-17-2022 Patient encounter procedure 09/17/2022 Procedure Visit Dentistry Daly Martino, [facility] [address] [place] [address] [facility] Start: 04-18-2022 Influenza vaccination Influenza Vaccine (#1) [facility] Start: 2021 Lipid panel Cholesterol [facility] Start: 2013 HPV Vaccine (optional start 27-45 years) HPV Vaccine (optional start 27-45 years) [facility] Start: 09-17-2007 Annual wellness visit Annual Wellness Visit ([id number]) [facility] Start: 2005 Hepatitis A (HAV) Vaccine (optional start 19+ years) Hepatitis A (HAV) Vaccine (optional start 19+ years) [facility] Start: 2005 Hepatitis B vaccination Hepatitis B (HBV) Vaccine (1 of 3 - 19+ 3-dose series) [facility] Start: 2004 Hepatitis C screening Hepatitis C Antibody [facility] Start: 2001 HIV screening HIV Test [facility] Immunizations Immunization Date Immunization Notes Care Provider Fa cility 05-14-2021 influenza, injectabl e, quadrivalent, preservative free [facility] 05-14-2021 influenza virus vacc ine, unspecified formulation [facility] 08-20-2020 [facility] (12+ yrs) [facility] S-COV-2 (COVID-19) vaccine, mRNA, spike protein, LNP, pres. free, 30 mcg/0.3mL dose (TUD=775) [facility] 07-30-2020 [facility] (12+ yrs) [facility] S-COV-2 (COVID-19) vaccine, mRNA, spike protein, LNP, pres. free, 30 mcg/0.3mL dose (AMJ=809) [facility] 05-08-2020 tetanus toxoid, redu ange diphtheria toxoid, and acellular pertussis vaccine, adsorbed [facility] 04-24-2020 influenza, injectabl e, quadrivalent, preservative free [facility] 04-27-2018 influenza, injectabl e, quadrivalent, preservative free [facility] 05-12-2017 influenza, injectabl e, quadrivalent, contains preservative [facility] 05-09-2015 influenza, injectabl e, quadrivalent, preservative free [facility] 05-08-2010 tetanus toxoid, redu ange diphtheria toxoid, and acellular pertussis vaccine, adsorbed [facility] 06-05-2009 novel influenza-H1N1 -09, preservative-free, injectable [facility] 05-10-2008 influenza virus vacc ine, whole virus [facility] 05-04-2007 influenza virus vacc ine, whole virus [facility] 12-02-2006 meningococcal polysa ccharide (groups A, C, Y and W-135) diphtheria toxoid conjugate vaccine (MCV4P) [facility] 04-02-2000 diphtheria and tetan us toxoids, adsorbed for pediatric use [facility] 03-05-1998 measles, mumps and r ubella virus vaccine [facility] 11-11-1987 diphtheria, tetanus toxoids and pertussis vaccine [facility] 11-11-1987 trivalent poliovirus vaccine, live, oral [facility] 09-16-1987 diphtheria, tetanus toxoids and pertussis vaccine [facility] 09-16-1987 measles, mumps and r ubella virus vaccine [facility] 09-16-1987 trivalent poliovirus vaccine, live, oral [facility] 1986 diphtheria, tetanus toxoids and pertussis vaccine [facility] 1986 diphtheria, tetanus toxoids and pertussis vaccine [facility] trivalent pol[facility]ovirus vaccine, live, oral [facility] 1986 diphtheria, tetanus tox[facility] trivalent poliovirus vaccine, live, oral [facility] Payers Date Payer Category Payer Dental --Stand Alone DENTAL-MEDI CAID [id number] 2013 Medicaid [id number] 2006 Medicare MEDICARE MEDICAR E PART A & B [id number] 2006-Present [address] [place] [address] Medicare [id number] 2006 Medicare FFS MEDICARE [id number] 1986 Unknown [id number] 1986 Unknown [id number] 93 1986 Unknown [id number] 27 1986 Unknown [id number] 27 1986 Unknown [id number] 27 1959 Medicaid [id number] 1958 Medicare [id number] Social History Date Type Detail Facility Start: 09-20-2020 Tobacco smoking status NHIS Never smoked tobacco [facility] Start: 09-20-2020 Tobacco use and exposure Smokeless tobacco non-user [facility] Start: 1985 Sex Assigned At Not on file [facility] Tobacco smoking status No Smoking Status Entered [facility] Start: 09-27-2020 Sex Assigned At Unknown F [facility] Start: 09-27-2020 History of Social function [facility] Start: 11-14-2013 Sex Male (finding) [facility] History of Present illness Narrative 09-17-2022 Savanna Lomeli DDS - 09/17/2022 11:55 AM EST Note Date & Type Note Facility 09-17-2022 History of Presen t illness Narrative ----- September at 12:36:30 PM ----- ----- Provider: [id number] Lomeli, -- Clinic: [place] ----- OR EVALUATION Patient presents for evaluation to determine best course of treatment due to history of . Autism ADHD Seizures Developmental delay Patient is accompanied by caregiver for today's appointment. Patient did not cooperate for any examination. Clinical findings: Unable to assess It is best suited that this patient have full comprehensive examination, radiographs and treatment completed in the OR setting. Explained that the patient will be added to our OR waiting list, and the legal guardian will be contacted once a time slot becomes available. Legal Guardian: Migdalia Kumar [employer] [phone] Next Visit: OR ----- Signed on September at 2:09:33 PM ----- ----- Provider: Carlos Alberto Cosby DDS -- Clinic: [place] ----- documented in [facility] Plan note Note Date & Type Note Facility Evaluation + Plan note No data available for this section [facility] Hospital Discharge instructions Note Date & Type Note Facility Hospital Discharge instructions No data available for this section [facility] Progress note Note Date & Type Note Facility Progress note No data available for this section [facility] Summary Purpose Family History No Family History Records Found No data available for this section No data available for this section No Family History Records FoundNo Family History Records FoundNo Family History Records FoundNo Family History Records FoundNo Family History Records Found Advance Directives No Advanced Directives Records FoundNo Advanced Directives Records FoundNo Advanced Directives Records FoundNo Advanced Directives Records FoundNo Advanced Directives Records FoundNo Advanced Directives Records Found Additional Source Comments (unrecognized sect ion and content) No Status Records FoundNo Status Records FoundNo Status Records FoundNo Status Records FoundNo Status Records FoundNo Status Records Found INFORMATION SOURCE (unrecogn ized section and content) DATE CREATED AUTHOR 03/05/2021 [facility] DATE CREATED AUTHOR AUTHOR'S ORGANIZ ATION 12/11/2023 [facility] DATE CREATED AUTHOR AUTHOR'S ORGANIZ ATION 09/17/2024 [facility] Patient Care team informatio n (unrecognized section and content) Personnel Name: MEL BURTON DO Address: Address: [address] [place] [address] Personnel Name: MEL BURTON DO Address: Address: [address] [place] [address] Personnel Name: MEL BURTON DO Address: Address: [address] [place] [address] FOR RECORDS PERTAINING TO PATIENTS WHO ARE OR HAVE BEEN ENROLLED IN A CHEMICAL DEPENDENCY/SUBSTANCEABUSE PROGRAM, SOME INFORMATION MAY BE OMITTED. This clinical summary was aggregated from multiple sources. Caution should be exercised in using it in the provision of clinical care. This summary normalizes information from multiple sources, and as a consequence, information in this document may materially change the coding, format and clinical context of patient data. In addition, data may be omitted in some cases. CLINICAL DECISIONS SHOULD BE BASED ON THE PRIMARY CLINICAL RECORDS. [employer] [facility] provides no warranty or guarantee of the accuracy or completeness of information in this document.
[2024-11-29 06:51] LABS: Basophils Percent Auto 0.4 % (0.2-2.0); Eosinophils Absolute Auto 0.1 10^3/uL (0.0-0.7); Eosinophils Percent Auto 2.6 % (0.9-7.0); Hemoglobin 15.3 g/dL (14.0-18.0); Immature Granulocytes Abs Auto 0.02 10^3/uL (0.00-0.03); Immature Granulocytes Pct Auto 0.4 % (0.0-0.5); Lymphocytes Absolute Auto 1.4 10^3/uL (1.2-3.8); Lymphocytes Percent Auto 25.8 % (20.5-60.0); Mean Corpuscular Hemoglobin 33.6 pg (25.9-34.0); Mean Corpuscular Volume 98.9 fL (80.0-94.0); Mean Platelet Volume 10.8 fL (9.5-13.5); Monocytes Absolute Auto 0.5 10^3/uL (0.3-0.8); Monocytes Percent Auto 9.8 % (1.7-12.0); Neutrophils Absolute Auto 3.3 10^3/uL (1.4-6.5); Platelet Count 169 10^3/uL (150-450); Red Blood Count 4.55 10^6/uL (4.70-6.10); Red Cell Distribution Width 13.1 % (11.0-15.0); White Blood Count 5.4 10^3/uL (4.0-11.0)
[2024-11-29 07:45] LABS: Alanine Aminotransferase 18 U/L (16-63); Albumin Globulin Ratio 1.3; Albumin Level 4.1 g/dL (3.4-5.0); Alkaline Phosphatase 239 U/L (46-116); Aspartate Amino Transferase 15 U/L (15-37); BUN Creatinine Ratio 17.6; Bilirubin Total 0.3 mg/dL (0.2-1.0); Calcium 8.6 mg/dL (8.5-10.1); Chloride 105 mmol/L (98-107); Estimated GFR (African America >60 (>=60 mL/min/1.73m^2); Estimated GFR (Non-African Ame >60 (>=60 mL/min/1.73m^2); Globulin 3.2 g/dL; Glucose 92 mg/dL (74-106); Sodium 138 mmol/L (136-145); Total Protein 7.3 g/dL (6.4-8.2)
[2024-11-30 08:09] LABS: Carbamazepine(Tegretol),S 10.7 ug/mL (4.0-12.0)
== END 2024-11-29 06:34 | disposition home or self-care (01) ==
LOC: LAB 06:33
PROVIDERS: PCP Family Medicine; Visit Provider Family Medicine
DX: R10.13 Epigastric pain (principal); K59.00 Constipation, unspecified; G40.909 Epilepsy, unspecified, not intractable, without status epilepticus; L40.9 Psoriasis, unspecified; F32.A Depression, unspecified; F42.9 Obsessive-compulsive disorder, unspecified; Z79.899 Other long term (current) drug therapy
CPT/HCPCS: 36415; 80053; 80156; 82306; 85025